=== PATIENT | male | born 1950 | race Caucasian/White ===

== ENCOUNTER → 2018-01-13 07:09 | Outpatient (CLI) | payer OTHER, SELFPAY ==
[2018-01-13 09:32] LABS: Vitamin D 25 Hydroxy (D3) 33.8 ng/mL (30.0-100.0)
[2018-01-13 11:26] LABS: BUN Creatinine Ratio 21.1 (6-22); Blood Urea Nitrogen 19 mg/dL (9-20); Calcium 9.7 mg/dL (8.4-10.2); Carbon Dioxide 28 mmol/L (22-32); Chloride 99 mmol/L (98-107); Cholesterol 209 mg/dL (140-199); Estimated Glomerular Filt Rate > 60.0 mL/min (>60); Glucose 130 mg/dL (80-110); HDL Cholesterol 43 mg/dL (40-60); HEMOLYSIS < 15 (0-50); LDL Cholesterol Calculated 94 mg/dL (<100); Potassium 4.2 mmol/L (3.4-5.1); Sodium 142 mmol/L (137-145); Triglycerides 361 mg/dL (35-150)
== END ==
PROVIDERS: PCP Student in an Organized Health Care Education/Training Program; Visit Provider Student in an Organized Health Care Education/Training Program
DX: N14.1 Nephropathy induced by other drugs, medicaments and biological substances (principal); T46.5X1A Poisoning by other antihypertensive drugs, accidental (unintentional), initial encounter; E78.2 Mixed hyperlipidemia; E55.9 Vitamin D deficiency, unspecified
CPT/HCPCS: 36415; 80048; 80061; 82306

== ENCOUNTER 2018-05-22 21:29 | Emergency (ER) | payer OTHER, SELFPAY ==
[2018-05-22 21:48] VITALS: BP 152/79; PULSE 82; RESP 18; TEMP 36.2; O2SAT 94; BMI 25.8
--- NOTE | 2018-05-22 23:54 | ED_ITS ---
HPI - Extremity Problem General Chief complaint: Extremity Problem,Nontraumatic Stated complaint: states his left leg is infected Time Seen by Provider: 05/22/18 23:34 Source: patient Mode of arrival: ambulatory Limitations: no limitations History of Present Illness HPI Narrative: Patient is a 67-year-old male with left leg redness. He was in mouth the last week he had a blister on the top of his foot. His leg quickly became red he was having fevers. He went to an urgent care where he was started on Bactrim and Keflex. He says it has actually improving gotten better. He received a call tonight that his culture from the wound on his that grew out strep pyogenes. He quickly Googled the bacteria and thinks he he now has a flesh eating skin. His concern is that he is going on the [employer] cruise in 5 days and wants to be sure he can get on the cruise ship. Related Data Previous Rx's Medication Instructions Recorded diclofenac sodium [Voltaren] 1 shanon TOPICAL QIDP PRN #100 gm 10/02/16 atorvastatin 40 mg tablet 40 mg PO HS #90 tab 01/17/18 Handicap parking sticker #1 ea 03/03/18 acyclovir 400 mg tablet 400 mg PO BID #120 tab 03/03/18 amlodipine 2.5 mg tablet 2.5 mg PO DAILY #90 tab 03/03/18 chlorthalidone 25 mg tablet 25 mg PO QDAY #90 tab 03/03/18 losartan 100 mg tablet 100 mg PO DAILY #90 tab 03/03/18 meloxicam 15 mg tablet 15 mg PO QDAY #60 tab 03/03/18 sildenafil (antihypertensive) 20 100 mg PO PRN #50 tab 03/03/18 mg tablet Allergies Allergy/AdvReac Type Severity Reaction Status Date / Time JONAH Inhibitors AdvReac Intermediate Cough Verified 03/03/18 10:28 Review of Systems Review of Systems ROS Unobtainable: All systems reviewed & are unremarkable except as noted in HPI and below Constitutional Denies chills, Reports fever(s) (Now improving), Denies lethargy and Denies weakness Cardiovascular Denies chest pain, Denies irregular heart rhythm, Denies lightheadedness, Denies palpitations and Denies orthopnea Gastrointestinal Gastrointestinal: Denies abdominal pain, Denies change in bowel habits, Denies diarrhea, Denies nausea and Denies vomiting Integumentary/Breasts Reports as per HPI Neurologic Denies weakness Endocrine Denies palpitations [facility] Medical History DDD (degenerative disc disease), cervical (Chronic) Erectile dysfunction (Chronic) Herpes (Chronic) Hyperlipidemia (Chronic) Hypertension (Chronic 1989) Knee pain (Chronic) Osteoarthritis (Chronic) Carpal tunnel syndrome (Resolved) Diverticulosis of colon (Resolved 02/2010) Surgical History Hx of fusion of cervical spine (Resolved) Hx of shoulder surgery (Resolved 1974) History of carpal tunnel repair History of knee replacement (2012) History of tonsillectomy Family History Brother Age: 68 Diverticulitis Father Age: 93 Hypertension Mother Cancer High cholesterol Sister Age: 64 High cholesterol Social History Smoking Status: Never smoker alcohol intake: current substance use type: does not use Family History Brother Age: 68 Diverticulitis Father Age: 93 Hypertension Mother Cancer High cholesterol Sister Age: 64 High cholesterol Social History Smoking Status: Never smoker alcohol intake: current substance use type: does not use Exam Initial Vital Signs Initial Vital Signs: Vital Signs Temperature 97.1 F L 05/22/18 21:48 Pulse Rate 82 05/22/18 21:48 Respiratory Rate 18 05/22/18 21:48 Blood Pressure 152/79 H 05/22/18 21:48 Pulse Oximetry 94 05/22/18 21:48 GENERAL: Well-appearing, well-nourished and in no acute distress. HEENT: Head atraumatic,EOMI, pupils reactive CARDIOVASCULAR: Regular rate and rhythm without murmurs, rubs or gallops. RESPIRATORY: Breath sounds equal bilaterally, no wheezes rales or rhonchi. ABDOMEN: Soft, nontender. Normoactive bowel sounds all 4 quadrants. No guarding or rebound. : No CVA tenderness EXTREMITIES: Normal range of motion, no clubbing or edema. Neurovascularly intact NEUROLOGICAL: Alert and oriented x4.Normal gait and speech. Cranial nerves II through XII grossly intact. SKIN: Left leg at erythema blanching slightly swollen nontender. He does have some healing wounds there are no fluctuation or gross pus. A arms also appears slightly red Course Orders Ordered: ED Orders 05/22/18 23:45 Basic Metabolic Panel Stat Blood Culture Stat Complete Blood Count AUTO DIFF Stat D Dimer Stat Lactate (Lactic Acid) Stat Procalcitonin Stat 05/23/18 00:44 US periph venous low extrem lt Stat Discontinued Medications Ceftriaxone Sodium/Dextrose (Rocephin) 1 gm in 50 mls @ 100 mls/hr IV NOW ONE Stop: 05/23/18 01:43 Last Infusion: 05/23/18 02:30 Dose: 0 mls/hr Admin: 05/23/18 01:53 Dose: 100 mls/hr Vital Signs - 8 hr 05/22/18 21:48 05/23/18 01:06 05/23/18 02:00 Temperature 97.1 F L 98.6 F Pulse Rate 82 70 70 Respiratory Rate 18 16 16 Blood Pressure 152/79 H Blood Pressure [Right Arm] 127/70 118/63 Pulse Oximetry 94 94 98 05/23/18 02:51 Temperature Pulse Rate 69 Respiratory Rate 16 Blood Pressure 119/66 Blood Pressure [Right Arm] Pulse Oximetry 96 MDM - Extremity (Nontraumatic) Lab Data Attestation: I reviewed the patient's lab results. Result diagrams: 05/23/18 00:14 05/23/18 00:14 Lab Results 05/23/18 05/23/18 05/23/18 Range/Units 00:14 00:14 00:14 WBC 10.7 (4.5-11.0) X10^3/uL RBC 4.12 L (4.5-5.9) X10^6/uL Hgb 12.7 L (13.5-17.5) g/dL Hct 36.9 L (41-53) % MCV 89.4 (80-100) fL MCH 30.7 (26-34) PG MCHC 34.3 (30-36) % RDW 12.9 (11.6-14.8) % Plt Count 292 (150-400) X10^3/uL Neut % (Auto) Not Reportable Lymph % (Auto) Not Reportable Hill % (Auto) Not Reportable Eos % (Auto) Not Reportable Baso % (Auto) Not Reportable Lymph # (Auto) Not Reportable Hill # (Auto) Not Reportable Baso # (Auto) Not Reportable D-Dimer 647 H (<230) ng/mL Sodium (137-145) mmol/L Potassium (3.4-5.1) mmol/L Chloride (98-107) mmol/L Carbon Dioxide (22-32) mmol/L BUN (9-20) mg/dL Creatinine (0.66-1.25) mg/dL Estimated GFR (>60) mL/min BUN/Creatinine Ratio (6-22) Glucose (80-110) mg/dL Lactate (0.7-2.1) mmol/L Calcium (8.4-10.2) mg/dL Procalcitonin 4.55 H (<0.5) ng/mL 05/23/18 05/23/18 Range/Units 00:14 00:14 WBC (4.5-11.0) X10^3/uL RBC (4.5-5.9) X10^6/uL Hgb (13.5-17.5) g/dL Hct (41-53) % MCV (80-100) fL MCH (26-34) PG MCHC (30-36) % RDW (11.6-14.8) % Plt Count (150-400) X10^3/uL Neut % (Auto) Lymph % (Auto) Hill % (Auto) Eos % (Auto) Baso % (Auto) Lymph # (Auto) Hill # (Auto) Baso # (Auto) D-Dimer (<230) ng/mL Sodium 134 L (137-145) mmol/L Potassium 3.9 (3.4-5.1) mmol/L Chloride 98 (98-107) mmol/L Carbon Dioxide 24 (22-32) mmol/L BUN 24 H (9-20) mg/dL Creatinine 1.20 (0.66-1.25) mg/dL Estimated GFR > 60.0 (>60) mL/min BUN/Creatinine Ratio 20.0 (6-22) Glucose 133 H (80-110) mg/dL Lactate 0.9 (0.7-2.1) mmol/L Calcium 9.3 (8.4-10.2) mg/dL Procalcitonin (<0.5) ng/mL Imaging Data Venous US: 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 However his D-dimer is also quite elevated. Due to his recent travel will get Doppler to rule out DVT. His Doppler is negative. Patient does not appear septic. His the patient and family confirm that culture was positive for strep pyogenes, at this time he does not need Bactrim, he can continue Keflex. Will give patient 1 dose of IV Rocephin due to such elevated procalcitonin. Discharge Plan Departure Patient Disposition: Home Clinical Impression: Cellulitis of left leg Discharge Date/Time: 05/23/18 02:51 Interventions: ED Discharge Assessment Last Done: 05/23/18 02:51 Instructions: DI for Cellulitis -- Adult Activity Restrictions/Additional Instructions: *You have been diagnosed with cellulitis of left leg *What to do: you need to finish her course of antibiotics *Continue to take medications as directed Keflex 500 mg 3 times a day as prescribed previously You may stop taking Bactrim *Follow up with your primary care provider in 2-3 days *Return to ER if you should have increasing redness, fever, or any new, worsening or concerning symptoms Prescriptions: No Action diclofenac sodium [Voltaren] 1 % gel 1 shanon Topical QIDP PRNQty: 100 RF: 3 atorvastatin 40 mg tablet 40 mg PO HS Qty: 90 RF: 1 losartan 100 mg tablet 100 mg PO DAILY Qty: 90 RF: 3 acyclovir 400 mg tablet 400 mg PO BID Qty: 120 RF: 3 meloxicam [Mobic] 15 mg tablet 15 mg PO QDAY Qty: 60 RF: 1 amlodipine 2.5 mg tablet 2.5 mg PO DAILY Qty: 90 RF: 1 chlorthalidone 25 mg tablet 25 mg PO QDAY Qty: 90 RF: 3 sildenafil (antihypertensive) 20 mg tablet 100 mg PO PRN Qty: 50 RF: 11 Handicap parking sticker Qty: 1 RF: 0 Referrals: Wilbert Fernandez MD [Primary Care Provider] -
[2018-05-23 00:32] LABS: Hematocrit 36.9 % (41-53); Hemoglobin 12.7 g/dL (13.5-17.5); Mean Corpuscular HGB Conc 34.3 % (30-36); Mean Corpuscular Hemoglobin 30.7 PG (26-34); Mean Corpuscular Volume 89.4 fL (80-100); Platelet Count 292 X10^3/uL (150-400); Red Blood Cell Count 4.12 X10^6/uL (4.5-5.9); Red Cell Distribution Width 12.9 % (11.6-14.8); White Blood Cell Count 10.7 X10^3/uL (4.5-11.0)
[2018-05-23 00:33] LABS: Add Manual Diff / Slide Review YES
[2018-05-23 00:36] LABS: D Dimer 647 ng/mL (<230)
[2018-05-23 00:38] LABS: Lactate (Lactic Acid) 0.9 mmol/L (0.7-2.1)
--- NOTE | 2018-05-23 00:44 | DI.US.S_ITS ---
PROCEDURE: US PERIPH VENOUS LOW EXTREM LT INDICATIONS: EDEMA, ELEVATED D-DIMER TECHNIQUE: Real-time imaging, as well as color and pulse Doppler interrogation, were performed of the lower extremity deep veins from the inguinal ligament to the popliteal fossa. COMPARISON: None. FINDINGS: The common femoral, femoral and popliteal veins are normally compressible, and free of intraluminal thrombus. Color and pulse Doppler demonstrate normal phasic intraluminal flow. There is normal augmentation response to distal compression maneuver. IMPRESSION: No evidence of deep vein thrombosis involving the left lower extremity. Dictated by: Maureen Hopper MD, PhD on 05/23/2018 at 7:33 Approved by: Maureen Hopper MD, PhD on 05/23/2018 at 7:33
[2018-05-23 00:45] LABS: Blood Urea Nitrogen 24 mg/dL (9-20); Calcium 9.3 mg/dL (8.4-10.2); Carbon Dioxide 24 mmol/L (22-32); Chloride 98 mmol/L (98-107); Estimated Glomerular Filt Rate > 60.0 mL/min (>60); Glucose 133 mg/dL (80-110); HEMOLYSIS < 15 (0-50); Potassium 3.9 mmol/L (3.4-5.1); Sodium 134 mmol/L (137-145)
[2018-05-23 01:00] LABS: Procalcitonin 4.55 ng/mL (<0.5)
[2018-05-23 01:06] VITALS: BP 127/70; PULSE 70; RESP 16; O2SAT 94
[2018-05-23] MEDS: CEFTRIAXONE 1 GM/50 ML FROZ.PIGGY IV (01:53)
[2018-05-23 02:00] VITALS: BP 118/63; PULSE 70; RESP 16; TEMP 37; O2SAT 98
[2018-05-23 02:51] VITALS: BP 119/66; PULSE 69; RESP 16; O2SAT 96
[2018-05-23 05:40] LABS: Plasma Cells 1; Toxic Granulation Present
== END 2018-05-23 02:51 | disposition home or self-care (01) ==
PROVIDERS: Emergency Provider Emergency Medicine; PCP Student in an Organized Health Care Education/Training Program
DX: L03.116 Cellulitis of left lower limb (principal)
CPT/HCPCS: 36415; 36591; 80048; 83605; 84145; 85025; 85379; 87040; 93971; 96365; 99283; 99284

== ENCOUNTER → 2019-12-01 09:56 | Outpatient (CLI) | payer MEDICARE, SELFPAY ==
[2019-12-01 10:37] LABS: Hemoglobin A1C% w Est Avg Glu 6.9 % (4.0-6.0)
[2019-12-01 10:51] LABS: HEMOLYSIS < 15 (0-50)
[2019-12-01 10:57] LABS: BUN Creatinine Ratio 17.8 (6-22); Blood Urea Nitrogen 16 mg/dL (9-20); Calcium 9.7 mg/dL (8.4-10.2); Carbon Dioxide 28 mmol/L (22-32); Chloride 102 mmol/L (98-107); Estimated Glomerular Filt Rate > 60.0 mL/min (>60); Glucose 133 mg/dL (80-110); Potassium 4.5 mmol/L (3.4-5.1); Sodium 139 mmol/L (137-145)
== END ==
PROVIDERS: PCP Student in an Organized Health Care Education/Training Program; Referring Provider Student in an Organized Health Care Education/Training Program; Visit Provider Student in an Organized Health Care Education/Training Program
DX: I10 Essential (primary) hypertension (principal); R73.9 Hyperglycemia, unspecified
CPT/HCPCS: 36415; 80048; 83036; 84153

== ENCOUNTER → 2019-12-05 07:32 | Outpatient (CLI) | payer MEDICARE, SELFPAY ==
[2019-12-06 08:43] LABS: Fecal Immunochemical Test Negative (Negative)
== END ==
PROVIDERS: PCP Student in an Organized Health Care Education/Training Program; Referring Provider Student in an Organized Health Care Education/Training Program; Visit Provider Student in an Organized Health Care Education/Training Program
DX: Z12.11 Encounter for screening for malignant neoplasm of colon (principal)
CPT/HCPCS: 82274